=== PATIENT | male | born 1995 | race Two or more races ===

== ENCOUNTER 2025-03-31 01:24 | Emergency (ER) | payer MEDICAID, SELFPAY ==
[2025-03-31 01:27] VITALS: BMI 30.7
[2025-03-31 01:46] VITALS: BP 167/84; PULSE 60; RESP 16; TEMP 36.6; O2SAT 99
--- NOTE | 2025-03-31 02:14 | EDNOTE_ITS ---
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 Patient denies anything getting into eyes. Symptoms started sevearal hours after watching. Limitations: no limitations Related Data Previous Rx's ?Medication ?Instructions ?Recorded erythromycin 5 mg/gram (0.5 %) eye 0.5 inch ophthalmic (eye) QID 1 03/31/25 ointment week #3.5 grams Allergies Allergy/AdvReac Type Severity Reaction Status Date / Time bee venom protein (honey bee) Allergy Verified 03/31/25 01:30 Review of Systems Review of Systems Systems Reviewed: All systems reviewed, normal except as documented Eyes Eyes: Reports as per HPI, Reports irritation and Reports eye pain Past Medical History Social History SMOKING STATUS: Current some day smoker ED Exam General Limitations: Present no limitations General appearance: Present alert and in no apparent distress Head Head exam: Present atraumatic Eye Eye exam: Present PERRL, EOMI and conjunctival injection Neck Neck exam: Present normal inspection, full ROM and trachea midline Chest Chest inspection: Present normal inspection and symmetric chest wall rise Neurological Exam Neurological exam: Present alert and oriented X3 Psychiatric Psychiatric exam: Present normal affect and normal mood Course Quality Measures none Vital Signs Vital signs: Vital Signs Temperature 97.9 F 03/31/25 01:46 Pulse Rate 60 03/31/25 01:46 Respiratory Rate 16 03/31/25 01:46 Blood Pressure 167/84 H 03/31/25 01:46 Pulse Oximetry (%) 99 03/31/25 01:46 Oxygen Delivery Method Room Air 03/31/25 01:46 O2 at 99% on RA and WNLs Eye MDM Narrative MDM Narrative:: 29M with no significant PMH presents to ED with bilateral eye pain 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 Patient denies anything getting into eyes. Symptoms started sevearal hours after watching. Physical exam reveals bilateral eye redness and watering. Normal pupil response and EOM. Patient is afebrile, alert, but appears to be in pain. Symptoms relieved with topical numbing drops. Meds and family life counselor given. Patient data External records reviewed:: None Clinical information provided by:: patient Social determinants that could affect healthcare access:: none Patient has the following chronic illnesses:: none How is presenting disease/condition affected by chronic disease/condition?: no chronic disease Evaluation data The following diagnostics were reviewed and interpreted by me:: other (specify) (none) Lab and/or radiology exams considered but not ordered:: not ordered Interpretation Summary: n/a Medications / Prescriptions Medications or Prescriptions considered but not ordered:: not ordered Medication administrations:: n/a Consultations Consultation(s) initiated? (list below): No Diagnosis Eye Problem Differential Diagnosis: corneal abrasion, conjunctivitis, acute iritis, hyphema, periorbital cellulitis, subconjunctival hemorrhage, glaucoma, corneal ulcer, ruptured globe and other (photokeratitis) Most likely diagnosis given after review of the tests above:: photokeratitis Admission Indicated Admission indicated?: not indicated Admission Request Was there a request for admission?: No Disposition Plan Disposition Plan: Discharge Discharge Attestation Discharge Attestation: The patient and all family members were given an opportunity to ask questions and understood the discharge instructions. Discharge instructions specifically effects, indications for sooner follow up or return to the emergency department, and the expected course of current diagnosis. Patient condition: Stable Discharge Plan Plan Patient Disposition: HOME (Self Care) Discharge Disposition comment: Stable Prescriptions/Referrals Prescriptions/Med Rec: New erythromycin 5 mg/gram (0.5 %) ointment 0.5 inch ophthalmic (eye) QID 7 Days Qty: 3.5 0RF Problem List Clinical Impression: Photokeratitis of both eyes Patient/Caregiver Discharge Instructions Education Materials: ED Flash Burn to Eye Additional Instructions: Please follow-up with PCP within 24-48 hours and return immediately if symptoms worsen. Make sure to always wear full wrap-around goggles. See eye doctor soon. Print Language: Irish Stand Alone Forms: Patient Portal Info Letter FEDERICO/DONALD Supervising Physician FEDERICO/DONALD Supervising Physician: Dr. Breen
== END 2025-03-31 02:05 | disposition home or self-care (01) ==
PROVIDERS: Emergency Provider Emergency Medicine
DX: H16.133 Photokeratitis, bilateral (principal)
CPT/HCPCS: 99281